=== PATIENT | male | born 1960 | race Caucasian/White ===

== ENCOUNTER 2016-07-29 07:43 | Emergency (ER) | payer BC ==
[2016-07-29] MEDS ORDERED: NS 0.9% 1000 ML* 1,000 ML IV ONE ×2 (08:17→10:28)
[2016-07-29 08:26] LABS: Hematocrit 45 % (42-52); Hemoglobin 14.8 g/dl (14.0-18.0); Mean Corpuscular HGB Conc 33 g/dl (31-36); Mean Corpuscular Hemoglobin 27 pg (27-31); Mean Corpuscular Volume 82 fL (80-94); Mean Platelet Volume 8 um3 (7.4-10.4); Red Blood Count 5.47 10^6/ul (4.0-5.4); Red Cell Distribution Width 15 % (10.5-15); White Blood Count 7.8 10^3/ul (3.5-10.8)
[2016-07-29 08:29] LABS: Urine Bilirubin Negative (Negative); Urine Glucose Negative (Negative); Urine Nitrite Negative (Negative)
[2016-07-29 08:38] LABS: C Reactive Protein 7.96 mg/L (< 5.00); Calcium 8.8 mg/dL (8.6-10.3); EGFR African American 69.4 (>60); EGFR Non-African American 53.9 (>60); Globulin 3.3 g/dL (2-4); Magnesium 2.3 mg/dL (1.9-2.7); Potassium 3.9 mmol/L (3.5-5.0); Total Bilirubin 0.6 mg/dL (0.2-1.0); Total Protein 7.3 g/dL (6.4-8.9)
[2016-07-29 08:41] LABS: Troponin I 0.01 ng/mL (<0.04)
[2016-07-29 09:04] LABS: TSH (Thyroid Stimulating Horm) 1.04 mcIU/mL (0.34-5.60)
--- NOTE | 2016-07-29 10:00 | RAD ---
Indication: Chest pain. Single frontal view of the chest performed at 0827 hours was reviewed. Prior study is not available for review.. No mediastinal shift is noted. Heart is of normal size and configuration. Lung hughes appear clear. IMPRESSION: NO ACTIVE CARDIOPULMONARY DISEASE IS NOTED.
[2016-07-29] MEDS ORDERED: Iodixanol* (CONTRAST) 320 MG/ML 100 ML SDV IV ONE (10:01)
--- NOTE | 2016-07-29 10:18 | RAD ---
INDICATION: Chest pain and shortness of breath. COMPARISON: Comparison is made with a prior chest x-ray study from July 29, 2016. TECHNIQUE: A CT angiogram of the chest was performed with intravenous following intravenous injection of 82 ml of Visipaque 320 nonionic contrast. Contiguous axial sections were obtained from the lung apices through the lung bases. Images were reconstructed in the coronal and sagittal planes. FINDINGS: Exam is limited due to motion artifact at the lung bases limiting evaluation of the basilar segmental arteries. No intraluminal filling defect or pulmonary embolism is seen. The heart is within normal limits in size. No pericardial effusion is present. The thoracic aorta is normal in caliber and demonstrates homogeneous contrast opacification. No significant enlarged mediastinal or hilar lymph nodes are seen. The lungs are clear. No pleural effusion is seen. Images of the upper abdomen demonstrate fatty infiltration of the liver. No significant focal osseous abnormality is seen. IMPRESSION: 1. LIMITED STUDY, NO EVIDENCE FOR PULMONARY EMBOLISM. 2. HEPATIC STEATOSIS.
[2016-07-29 12:21] VITALS: BP 125/74
--- NOTE | 2016-07-29 13:14 | ED ---
Bertrand Elliott Karl, scribed for Brennan Au MD on 07/29/16 at 0825 . HPI Chest Pain - HPI Summary HPI Summary: Pt is a 56 y/o male BIBA that presents to the ED c/o bilateral "lung" pain that began at around 06:00 and lasted for 30 min. Pt reported that he felt much better once the EMT's arrived and thinks he may just be suffering from anxiety. Pt stated that the anxiety could be brought on by stress from having to take care of his father who has dementia and Alzheimer's and his brother leaving for 2 months which would result in his father being left alone for a period of time. Pt also reported that he was feeling lightheadedness and fatigue with his bilateral lung pain but both have subsided as well since arriving at the ED. Pt also reported that he is having memory problems for the past 6 months. Pt denied nausea, diaphoresis, and SOB. Hx: HTN, HLD, anxiety. - History of Current Complaint Chief Complaint: EDChestPainROMI Time Seen by Provider: 07/29/16 08:00 Hx Obtained From: Patient Pain Intensity: 0 - CP/Abd pain Pain Scale Used: 0-10 Numeric - Allergy/Home Medications Allergies/Adverse Reactions: Allergies Allergy/AdvReac Type Severity Reaction Status Date / Time No Known Allergies Allergy Verified 09/23/15 08:56 PMH/Surg Hx/FS Hx/Imm Hx Cardiovascular History: Reports: Hx Hypertension - CONTROL WITH MEDS Sensory History: Reports: Hx Contacts or Glasses - READING GLASSES Denies: Hx Hearing Aid Opthamlomology History: Reports: Hx Contacts or Glasses - READING GLASSES Neurological History: Reports: Other Neuro Impairments/Disorders - PATIENT STATES HE TAKES MEDICATION TO HELP HIM DEAL WITH PEOPLE. - Surgical History Surgery Procedure, Year, and Place: 30 YEARS SURGERY TO REPAIR BROKEN BONE IN LEG, Hx Anesthesia Reactions: No Infectious Disease History: No Infectious Disease History: Denies: Traveled Outside the [place] in Last 30 Days - Family History Known Family History: Positive: Other - dementia - Social History Alcohol Use: Occasionally Alcohol Amount: 1 BEER Substance Use Type: Reports: None Smoking Status (MU): Never Smoked Tobacco Review of Systems Positive: Fatigue. Negative: Skin Diaphoresis Eyes: Negative ENT: Negative Cardiovascular: Negative Positive: Other - bilateral "lung pain". Negative: Shortness Of Breath Negative: Nausea Genitourinary: Negative Musculoskeletal: Negative Skin: Negative Neurological: Other - llightheadedness Positive: Anxious All Other Systems Reviewed And Are Negative: Yes Physical Exam Triage Information Reviewed: Yes Vital Signs On Initial Exam: Initial Vitals Temp Pulse Resp BP Pulse Ox 98.9 F 77 18 121/69 96 07/29/16 07:50 07/29/16 07:50 07/29/16 07:50 07/29/16 07:50 07/29/16 07:50 Vital Signs Reviewed: Yes Appearance: Positive: Well-Appearing, No Pain Distress Skin: Positive: Warm, Skin Color Reflects Adequate Perfusion, Dry Head/Face: Positive: Normal Head/Face Inspection Eyes: Positive: EOMI, LEANDRO ENT: Positive: Normal ENT inspection Neck: Positive: Supple, Nontender Respiratory/Lung Sounds: Positive: Clear to Auscultation, Breath Sounds Present Cardiovascular: Positive: RRR Abdomen Description: Positive: Nontender, Soft Bowel Sounds: Positive: Present Musculoskeletal: Positive: Normal, Strength/ROM Intact Neurological: Positive: Normal, Sensory/Motor Intact, Alert, Oriented to Person Place, Time Psychiatric: Positive: Affect/Mood Appropriate Diagnostics - Vital Signs Vital Signs Temp Pulse Resp BP Pulse Ox 07/29/16 07:50 98.9 F 77 18 121/69 96 - Laboratory Lab Results: Lab Results 07/29/16 07/29/16 07/29/16 Range/Units 08:00 08:00 08:00 WBC 7.8 (3.5-10.8) 10^3/ul RBC 5.47 H (4.0-5.4) 10^6/ul Hgb 14.8 (14.0-18.0) g/dl Hct 45 (42-52) % MCV 82 (80-94) fL MCH 27 (27-31) pg MCHC 33 (31-36) g/dl RDW 15 (10.5-15) % Plt Count 231 (150-450) 10^3/ul MPV 8 (7.4-10.4) um3 Neut % (Auto) 69.8 (38-83) % Lymph % (Auto) 20.4 L (25-47) % Reagan % (Auto) 8.1 (1-9) % Eos % (Auto) 1.1 (0-6) % Baso % (Auto) 0.6 (0-2) % Absolute Neuts (auto) 5.5 (1.5-7.7) 10^3/ul Absolute Lymphs (auto) 1.6 (1.0-4.8) 10^3/ul Absolute Monos (auto) 0.6 (0-0.8) 10^3/ul Absolute Eos (auto) 0.1 (0-0.6) 10^3/ul Absolute Basos (auto) 0 (0-0.2) 10^3/ul Absolute Nucleated RBC 0.01 10^3/ul Nucleated RBC % 0.1 INR (Anticoag Therapy) 0.89 (0.89-1.11) APTT 25.6 L (26.0-36.3) seconds D-Dimer, Quantitative 325 H (Less Than 230) ng/mL Sodium 135 (133-145) mmol/L Potassium 3.9 (3.5-5.0) mmol/L Chloride 101 (101-111) mmol/L Carbon Dioxide 26 (22-32) mmol/L Anion Gap 8 (2-11) mmol/L BUN 26 H (6-24) mg/dL Creatinine 1.37 H (0.67-1.17) mg/dL Est GFR ( Amer) 69.4 (>60) Est GFR (Non-Af Amer) 53.9 (>60) BUN/Creatinine Ratio 19.0 (8-20) Glucose 106 H (70-100) mg/dL Lactic Acid (0.5-2.0) mmol/L Calcium 8.8 (8.6-10.3) mg/dL Magnesium 2.3 (1.9-2.7) mg/dL Total Bilirubin 0.60 (0.2-1.0) mg/dL AST 23 (13-39) U/L ALT 30 (7-52) U/L Alkaline Phosphatase 60 (34-104) U/L Total Creatine Kinase 111 (10-223) U/L CK-MB (CK-2) 5.4 (0.6-6.3) ng/mL Troponin I 0.01 (<0.04) ng/mL C-Reactive Protein 7.96 H (< 5.00) mg/L B-Natriuretic Peptide ( - 100) pg/mL Total Protein 7.3 (6.4-8.9) g/dL Albumin 4.0 (3.2-5.2) g/dL Globulin 3.3 (2-4) g/dL Albumin/Globulin Ratio 1.2 (1-3) Lipase 32 (11.0-82.0) U/L TSH 1.04 (0.34-5.60) mcIU/mL Urine Color Urine Appearance Urine pH (5-9) Ur Specific Lillian (1.010-1.030) Urine Protein (Negative) Urine Ketones (Negative) Urine Blood (Negative) Urine Nitrate (Negative) Urine Bilirubin (Negative) Urine Urobilinogen (Negative) Ur Leukocyte Esterase (Negative) Urine Glucose (Negative) 07/29/16 07/29/16 07/29/16 Range/Units 08:00 08:00 08:00 WBC (3.5-10.8) 10^3/ul RBC (4.0-5.4) 10^6/ul Hgb (14.0-18.0) g/dl Hct (42-52) % MCV (80-94) fL MCH (27-31) pg MCHC (31-36) g/dl RDW (10.5-15) % Plt Count (150-450) 10^3/ul MPV (7.4-10.4) um3 Neut % (Auto) (38-83) % Lymph % (Auto) (25-47) % Reagan % (Auto) (1-9) % Eos % (Auto) (0-6) % Baso % (Auto) (0-2) % Absolute Neuts (auto) (1.5-7.7) 10^3/ul Absolute Lymphs (auto) (1.0-4.8) 10^3/ul Absolute Monos (auto) (0-0.8) 10^3/ul Absolute Eos (auto) (0-0.6) 10^3/ul Absolute Basos (auto) (0-0.2) 10^3/ul Absolute Nucleated RBC 10^3/ul Nucleated RBC % INR (Anticoag Therapy) (0.89-1.11) APTT (26.0-36.3) seconds D-Dimer, Quantitative (Less Than 230) ng/mL Sodium (133-145) mmol/L Potassium (3.5-5.0) mmol/L Chloride (101-111) mmol/L Carbon Dioxide (22-32) mmol/L Anion Gap (2-11) mmol/L BUN (6-24) mg/dL Creatinine (0.67-1.17) mg/dL Est GFR ( Amer) (>60) Est GFR (Non-Af Amer) (>60) BUN/Creatinine Ratio (8-20) Glucose (70-100) mg/dL Lactic Acid 1.0 (0.5-2.0) mmol/L Calcium (8.6-10.3) mg/dL Magnesium (1.9-2.7) mg/dL Total Bilirubin (0.2-1.0) mg/dL AST (13-39) U/L ALT (7-52) U/L Alkaline Phosphatase (34-104) U/L Total Creatine Kinase (10-223) U/L CK-MB (CK-2) (0.6-6.3) ng/mL Troponin I (<0.04) ng/mL C-Reactive Protein (< 5.00) mg/L B-Natriuretic Peptide 8 ( - 100) pg/mL Total Protein (6.4-8.9) g/dL Albumin (3.2-5.2) g/dL Globulin (2-4) g/dL Albumin/Globulin Ratio (1-3) Lipase (11.0-82.0) U/L TSH (0.34-5.60) mcIU/mL Urine Color Yellow Urine Appearance Clear Urine pH 6.0 (5-9) Ur Specific Lillian 1.016 (1.010-1.030) Urine Protein Negative (Negative) Urine Ketones Negative (Negative) Urine Blood Negative (Negative) Urine Nitrate Negative (Negative) Urine Bilirubin Negative (Negative) Urine Urobilinogen Negative (Negative) Ur Leukocyte Esterase Negative (Negative) Urine Glucose Negative (Negative) 07/29/16 Range/Units 12:25 WBC (3.5-10.8) 10^3/ul RBC (4.0-5.4) 10^6/ul Hgb (14.0-18.0) g/dl Hct (42-52) % MCV (80-94) fL MCH (27-31) pg MCHC (31-36) g/dl RDW (10.5-15) % Plt Count (150-450) 10^3/ul MPV (7.4-10.4) um3 Neut % (Auto) (38-83) % Lymph % (Auto) (25-47) % Reagan % (Auto) (1-9) % Eos % (Auto) (0-6) % Baso % (Auto) (0-2) % Absolute Neuts (auto) (1.5-7.7) 10^3/ul Absolute Lymphs (auto) (1.0-4.8) 10^3/ul Absolute Monos (auto) (0-0.8) 10^3/ul Absolute Eos (auto) (0-0.6) 10^3/ul Absolute Basos (auto) (0-0.2) 10^3/ul Absolute Nucleated RBC 10^3/ul Nucleated RBC % INR (Anticoag Therapy) (0.89-1.11) APTT (26.0-36.3) seconds D-Dimer, Quantitative (Less Than 230) ng/mL Sodium (133-145) mmol/L Potassium (3.5-5.0) mmol/L Chloride (101-111) mmol/L Carbon Dioxide (22-32) mmol/L Anion Gap (2-11) mmol/L BUN (6-24) mg/dL Creatinine (0.67-1.17) mg/dL Est GFR ( Amer) (>60) Est GFR (Non-Af Amer) (>60) BUN/Creatinine Ratio (8-20) Glucose (70-100) mg/dL Lactic Acid (0.5-2.0) mmol/L Calcium (8.6-10.3) mg/dL Magnesium (1.9-2.7) mg/dL Total Bilirubin (0.2-1.0) mg/dL AST (13-39) U/L ALT (7-52) U/L Alkaline Phosphatase (34-104) U/L Total Creatine Kinase (10-223) U/L CK-MB (CK-2) (0.6-6.3) ng/mL Troponin I 0.01 (<0.04) ng/mL C-Reactive Protein (< 5.00) mg/L B-Natriuretic Peptide ( - 100) pg/mL Total Protein (6.4-8.9) g/dL Albumin (3.2-5.2) g/dL Globulin (2-4) g/dL Albumin/Globulin Ratio (1-3) Lipase (11.0-82.0) U/L TSH (0.34-5.60) mcIU/mL Urine Color Urine Appearance Urine pH (5-9) Ur Specific Lillian (1.010-1.030) Urine Protein (Negative) Urine Ketones (Negative) Urine Blood (Negative) Urine Nitrate (Negative) Urine Bilirubin (Negative) Urine Urobilinogen (Negative) Ur Leukocyte Esterase (Negative) Urine Glucose (Negative) Result Diagrams: 07/29/16 08:00 07/29/16 08:00 Lab Statement: Any lab studies that have been ordered have been reviewed, and results considered in the medical decision making process. - Radiology CXR Xray Interpretation: No Acute Changes Radiology Interpretation Completed By: Radiologist - IMPRESSION: NO ACTIVE CARDIOPULMONARY DISEASE IS NOTED. CTA Chest Xray Interpretation: No Acute Changes Radiology Interpretation Completed By: Radiologist - IMPRESSION: 1. LIMITED STUDY, NO EVIDENCE FOR PULMONARY EMBOLISM. 2. HEPATIC STEATOSIS. - EKG 07:45 Cardiac Rate: NL - at 77 bpm EKG Rhythm: Sinus Rhythm Ectopy: None EKG Interpretation: LVH Re-Evaluation - Re-Evaluation First Eval Re-Evaluation Time: 10:25 Change: Unchanged Comment: Discussed results of the imaging studies and laboratory results with the pt. Chest Pain Course/Dx - Course Assessment/Plan: WELL IN ED. DISCHARGE HOME STABLE. - Diagnoses Provider Diagnoses: Chest pain, Dyspnea Discharge - Discharge Plan Condition: Stable Disposition: HOME Patient Education Materials: Chest Pain (ED), Dyspnea (ED) Referrals: Jaron Menjivar MD [Primary Care Provider] - Additional Instructions: FOLLOW UP WITH DR MENJIVAR. RETURN TO THE EMERGENCY DEPARTMENT FOR ANY WORSENING OF YOUR CONDITION OR QUESTIONS OR CONCERNS. The documentation as recorded by the Bertrand myers Karl accurately reflects the service I personally performed and the decisions made by me, Brennan Au MD.
== END 2016-07-29 13:44 | disposition home or self-care (01) ==
LOC: ED 07:43
DX: R07.9 Chest pain, unspecified (principal); R06.00 Dyspnea, unspecified
CPT/HCPCS: 36415; 71010; 71275; 80053; 81003; 82550; 82553; 83605; 83690; 83735; 83880; 84443; 84484; 85025; 85379; 85610; 85730; 86140; 93005; 96360; 99282; Q9967

== ENCOUNTER 2018-01-17 09:11 | Emergency (ER) | payer BC ==
--- NOTE | 2018-01-17 10:03 | ED ---
Medical Screening - HPI Summary HPI Summary: 58M presents with two days of insomnia. He states that he is out of seroquel. He states that he was being tampered down as was suppose to start new medication. says has not called mental health office to get refill. He denies any chest pain, SOB, or abdominal pain. no dizziness. admits to fatigue attributed to lack of sleep. states is here for medication refill only. admits to increase stress. mother is in fdc is causing stress. no SI/HI. follows up with [facility]. has been taking HTN med as prescribed. - History of Current Complaint Chief Complaint: EDHypertension Stated Complaint: INSOMNIA Time Seen by Provider: 01/17/18 09:38 PMH/Surg Hx/FS Hx/Imm Hx Endocrine/Hematology History: Denies: Hx Diabetes Cardiovascular History: Reports: Hx Hypertension - CONTROL WITH MEDS History: Denies: Hx Renal Disease Sensory History: Reports: Hx Contacts or Glasses - READING GLASSES Denies: Hx Hearing Aid Opthamlomology History: Reports: Hx Contacts or Glasses - READING GLASSES Neurological History: Reports: Other Neuro Impairments/Disorders - PATIENT STATES HE TAKES MEDICATION TO HELP HIM DEAL WITH PEOPLE. - Surgical History Surgery Procedure, Year, and Place: 30 YEARS SURGERY TO REPAIR BROKEN BONE IN LEG, Hx Anesthesia Reactions: No Infectious Disease History: No Infectious Disease History: Denies: Traveled Outside the [place] in Last 30 Days - Family History Known Family History: Positive: Other - dementia - Social History Alcohol Use: Occasionally Alcohol Amount: 1 BEER Substance Use Type: Reports: None Smoking Status (MU): Never Smoked Tobacco Review of Systems Negative: Fever Negative: Chest Pain Negative: Shortness Of Breath Neurological: Other - insomnia All Other Systems Reviewed And Are Negative: Yes Physical Exam Triage Information Reviewed: Yes Vital Signs On Initial Exam: Initial Vitals Temp Pulse Resp BP Pulse Ox 97.2 F 51 18 190/101 98 01/17/18 09:18 01/17/18 09:18 01/17/18 09:18 01/17/18 09:18 01/17/18 09:18 Vital Signs Reviewed: Yes Appearance: Positive: Well-Appearing Skin: Positive: Warm, Dry Head/Face: Positive: Normal Head/Face Inspection Eyes: Positive: Normal, Conjunctiva Clear ENT: Positive: Pharynx normal Respiratory/Lung Sounds: Positive: Clear to Auscultation, Breath Sounds Present Cardiovascular: Positive: Normal, RRR Abdomen Description: Positive: Nontender, Soft Bowel Sounds: Positive: Present Musculoskeletal: Positive: Normal Neurological: Positive: Normal Psychiatric: Positive: Normal Diagnostics - Vital Signs Vital Signs Temp Pulse Resp BP Pulse Ox 01/17/18 09:26 14 175/81 01/17/18 09:25 27 01/17/18 09:18 97.2 F 51 18 190/101 98 - Laboratory Lab Statement: Any lab studies that have been ordered have been reviewed, and results considered in the medical decision making process. Course/Dx - Course Course Of Treatment: 58M presents with two days of insomnia. He states that he is out of seroquel. He states that he was being tampered down as was suppose to start new medication. says has not called mental health office to get refill. He denies any chest pain, SOB, or abdominal pain. no dizziness. admits to fatigue attributed to lack of sleep. states is here for medication refill only. admits to increase stress. mother is in fdc is causing stress. no SI/HI. follows up with [facility]. has been taking HTN med as prescribed. on exam normal PE. spoke with counselor from [facility] and read dr notes and said that last meeting on decided to stop seroquel by tapering. has have started Ramelteon intead and also trazadone. discussed with patient due to tapering off and now off medication do not want to restart medication as will leave up to mental health clinic. discussed should give medication some time to work and [facility] patient blood pressure is elevated at this visit. denies any symptoms of chest pain, SOB, or headache. patient declined lab work and has history of HTN so will give dose of hydrazaline and have follow up with primary. patient understand and agrees with plan. - Diagnoses Provider Diagnoses: Medication refill, Hypertension Discharge - Sign-Out/Discharge Documenting (check all that apply): Discharge/Admit/Transfer - Discharge Plan Condition: Good Disposition: HOME Patient Education Materials: Hypertension (ED) Referrals: Jaron Menjivar MD [Primary Care Provider] - Additional Instructions: Follow up with mental health Follow up with primary about blood pressure as is elevated at this visit Return to ED if develop any new or worsening symptoms - Billing Disposition and Condition Condition: GOOD Disposition: Home
[2018-01-17] MEDS ORDERED: hydrALAZINE TAB* 10 MG PO ONE (10:11)
[2018-01-17 10:28] VITALS: BP 149/76
== END 2018-01-17 10:19 | disposition home or self-care (01) ==
LOC: ED 09:11
DX: I10 Essential (primary) hypertension (principal)
CPT/HCPCS: 99283; A9270-GY

== ENCOUNTER → 2018-05-16 09:52 | Emergency (ER) | payer BC ==
[~2018-05-16 09:52] MED LIST: Lisinopril TAB* 10 MG PO ONE; hydrALAZINE IV* 20 MG/ML VIAL IV SLOW PU ONE
[2018-05-16 10:25] LABS: ABS Basophils 0 10^3/ul (0-0.2); ABS Eosinophils 0.1 10^3/ul (0-0.6); ABS Lymphocytes 0.8 10^3/ul (1.0-4.8); ABS Monocytes 0.3 10^3/ul (0-0.8); ABS Neutrophils 3.5 10^3/ul (1.5-7.7); ABS Nucleated RBC 0 10^3/ul; Eosinophil % 1.7 % (0-6); Hematocrit 40 % (42-52); Hemoglobin 13.5 g/dl (14.0-18.0); Lymphocyte % 17.1 % (25-47); Mean Corpuscular HGB Conc 34 g/dl (31-36); Mean Corpuscular Hemoglobin 29 pg (27-31); Mean Corpuscular Volume 86 fL (80-94); Mean Platelet Volume 8.3 um3 (7.4-10.4); Nucleated Red Blood Cells % 0.1; Platelet Count 236 10^3/ul (150-450); Red Cell Distribution Width 14 % (10.5-15); White Blood Count 4.7 10^3/ul (3.5-10.8)
--- NOTE | 2018-05-16 10:36 | ED ---
Shortness of Breath - HPI Summary HPI Summary: Patient is a 58 y/o M w/ c/o SOB, spells of dizziness, and pressure behind his eyes. He states that he woke up at 0330 today for his work shift at 0500 and began to experience these Sx. He denies chest pain/tightness. Patient states that he took his normal sleeping medication at 1830 last night as opposed to 1700, his regular time. He also notes that he has an appointment with his psychiatrist in three days to discuss stopping his sleep medication. Patient is also on Lisinopril. In the room, o2 is 97, BP is 152/102, pulse is 60. He notes that he was in ED for high BP previously and states that he was given "one pill " which helped resolve BP problems. He does not remember the name of the pill. He denies drug/alc usage, denies SI presently or recently. However, he has had PMHx of SI. He notes recent stress with his father being in a [place] [facility] facility. On triage, pain is denied, sitting down and resting is noted to alleviate Sx, nothing is reported to aggravate Sx. Home medications and allergies are reviewed. - History of Current Complaint Chief Complaint: EDDizziness Time Seen by Provider: 05/16/18 09:58 Hx Obtained From: Patient Onset/Duration: Lasting Hours, Still Present Timing: Intermittent Episodes Lasting: Current Severity: None Aggrevating Factors: Nothing Alleviating Factors: Other - sitting down, resting Associated Signs & Symptoms: Dizzy - Allergy/Home Medications Allergies/Adverse Reactions: Allergies Allergy/AdvReac Type Severity Reaction Status Date / Time No Known Allergies Allergy Verified 09/23/15 08:56 PMH/Surg Hx/FS Hx/Imm Hx Endocrine/Hematology History: Denies: Hx Diabetes Cardiovascular History: Reports: Hx Hypertension - CONTROL WITH MEDS History: Denies: Hx Renal Disease Sensory History: Reports: Hx Contacts or Glasses - READING GLASSES Denies: Hx Hearing Aid Opthamlomology History: Reports: Hx Contacts or Glasses - READING GLASSES Neurological History: Reports: Other Neuro Impairments/Disorders - PATIENT STATES HE TAKES MEDICATION TO HELP HIM DEAL WITH PEOPLE. - Surgical History Surgery Procedure, Year, and Place: 30 YEARS SURGERY TO REPAIR BROKEN BONE IN LEG, Hx Anesthesia Reactions: No Infectious Disease History: No Infectious Disease History: Denies: Traveled Outside the [place] in Last 30 Days - Family History Known Family History: Positive: Other - dementia - Social History Alcohol Use: Occasionally Alcohol Amount: 1 BEER Substance Use Type: Reports: None Smoking Status (MU): Never Smoked Tobacco Review of Systems Negative: Fever, Chills Positive: Other - POSITIVE: pressure behind eyes . Negative: Erythema Negative: Sore Throat Negative: Chest Pain Positive: Shortness Of Breath Negative: Abdominal Pain, Vomiting, Nausea Negative: dysuria, hematuria Negative: Myalgia, Edema Negative: Rash Neurological: Other - POSITIVE: dizziness All Other Systems Reviewed And Are Negative: Yes Physical Exam - Summary Physical Exam Summary: Constitutional: Well-developed, Well-nourished, Alert. (-) Distressed (+) Pressured Speech Skin: Warm, Dry HENT: Normocephalic; Atraumatic Eyes: Conjunctiva normal Neck: Musculoskeletal ROM normal neck. (-) JVD, (-) Stridor, (-) Tracheal deviation Cardio: Rhythm regular, rate normal, Heart sounds normal; Intact distal pulses; The pedal pulses are 2+ and symmetric. Radial pulses are 2+ and symmetric. (-) Murmur Pulmonary/Chest wall: Effort normal. (-) Respiratory distress, (-) Wheezes, (-) Rales Abd: Soft, (-) epigastric tenderness, (-) Distension, (-) Guarding, (-) Rebound Musculoskeletal: (-) Edema Lymph: (-) Cervical adenopathy Neuro: Alert, Oriented x3; GCS 15 Psych: Mood and affect Normal Triage Information Reviewed: Yes Vital Signs On Initial Exam: Initial Vitals Temp Pulse Resp BP Pulse Ox 98.8 F 57 18 171/102 96 05/16/18 09:57 05/16/18 09:57 05/16/18 09:57 05/16/18 09:57 05/16/18 09:57 Vital Signs Reviewed: Yes Diagnostics - Vital Signs Vital Signs Temp Pulse Resp BP Pulse Ox 05/16/18 09:57 98.8 F 57 18 171/102 96 - Laboratory Lab Results: Lab Results 05/16/18 Range/Units 10:15 WBC 4.7 (3.5-10.8) 10^3/ul RBC 4.60 (4.00-5.40) 10^6/ul Hgb 13.5 L (14.0-18.0) g/dl Hct 40 L (42-52) % MCV 86 (80-94) fL MCH 29 (27-31) pg MCHC 34 (31-36) g/dl RDW 14 (10.5-15) % Plt Count 236 (150-450) 10^3/ul MPV 8.3 (7.4-10.4) um3 Neut % (Auto) 73.9 (38-83) % Lymph % (Auto) 17.1 L (25-47) % [place] % (Auto) 6.6 (0-7) % Eos % (Auto) 1.7 (0-6) % Baso % (Auto) 0.7 (0-2) % Absolute Neuts (auto) 3.5 (1.5-7.7) 10^3/ul Absolute Lymphs (auto) 0.8 L (1.0-4.8) 10^3/ul Absolute Monos (auto) 0.3 (0-0.8) 10^3/ul Absolute Eos (auto) 0.1 (0-0.6) 10^3/ul Absolute Basos (auto) 0 (0-0.2) 10^3/ul Absolute Nucleated RBC 0 10^3/ul Nucleated RBC % 0.1 Result Diagrams: 05/16/18 10:15 05/16/18 10:15 Lab Statement: Any lab studies that have been ordered have been reviewed, and results considered in the medical decision making process. - Radiology CXR Radiology Interpretation Completed By: Radiologist Summary of Radiographic Findings: No radiographic evidence of acute cardiopulmonary disease. This report was reviewed by ED physician. - CT Brain CT CT Interpretation Completed By: Radiologist Summary of CT Findings: No acute intracranial pathology. This report was reviewed by ed physician. - EKG 1025 Cardiac Rate: Bradycardia - rate of 54 bpm EKG Rhythm: Sinus Bradycardia EKG Interpretation: no STEMI Re-Evaluation - Re-Evaluation First Eval Re-Evaluation Time: 11:38 Change: Improved Comment: 1138 Patient feels better, 130 systolic BP Second Eval Re-Evaluation Time: 13:30 Comment: First trop is 0.01, second is 0.01. Results of labs and tests were discussed with patient. Patient will be discharged to home and is instructed to take him Lisinopril in the morning starting tomorrow and to follow up with PCP in 1-2 days. Patient agrees with this plan. Course/Dx - Course Course Of Treatment: Patient is a 58 y/o M w/ c/o SOB, spells of dizziness, and pressure behind his eyes. He states that he woke up at 0330 today for his work shift at 0500 and began to experience these Sx. He denies chest pain/tightness. Patient states that he took his normal sleeping medication at 1830 last night as opposed to 1700, his regular time. Patient is also on Lisinopril. In the room , o2 is 97, BP is 152/102, pulse is 60. He denies drug/alc usage, denies SI presently or recently. However, he has had PMHx of SI. On physical exam, patient is noted to have pressured speech. During ED course, patient received Prinivil 30 mg PO ONCE and apresoline 5 mg IV SLOW PUSH. UA was negative. EKG showed sinus bradycardia with rate of [address] showed no acute intracranial pathology. CXR showed no radiographic evidence of acute cardiopulmonary disease. Labs showed 0.93 TSH, glucose 109, lactic acid 0.9, Hgb 13.5, WBC 4.7. First trop is 0.01, second is 0.01. 1330 Results of labs and tests were discussed with patient. Patient will be discharged to home and is instructed to take him Lisinopril in the morning starting tomorrow and to follow up with PCP in 1-2 days. Patient agrees with this plan. Dx of uncontrolled HTN. - Diagnoses Provider Diagnoses: Uncontrolled hypertension Discharge - Sign-Out/Discharge Documenting (check all that apply): Patient Departure - discharge - Discharge Plan Condition: Stable Disposition: HOME Prescriptions: Lisinopril TAB* [Prinivil TAB 10 MG*] 30 mg PO DAILY #42 tab Patient Education Materials: Hypertension (ED) Forms: *Work Release Referrals: Jaron Menjivar MD [Primary Care Provider] - 2 Days Additional Instructions: Take Lisinopril in the morning starting tomorrow. Follow up with your primary care physician in 1-2 days. Return to ED for any changing or worsening symptoms. - Attestation Statements Document Initiated by Scribe: Yes Documenting Scribe: Prosper Stacy Provider For Whom Jonnae is Documenting (Include Credential): Jeremiah Fountain MD Scribe Attestation: Prosper Elliott , scribed for Jeremiah Fountain MD on 05/16/18 at 1505.
[2018-05-16 10:45] LABS: Urine Appearance Clear; Urine Blood Negative (Negative); Urine Color Straw; Urine Ketones Negative (Negative); Urine Protein Negative (Negative); Urine Specific Gravity 1.011 (1.010-1.030); Urine Urobilinogen Negative (Negative)
[2018-05-16 10:49] LABS: EGFR Non-African American 91.7 (>60)
--- NOTE | 2018-05-16 10:55 | RAD ---
HISTORY: DIZZINESS, WEAKNESS COMPARISONS: February 27, 2007 TECHNIQUE: Multiple contiguous axial CT scans were obtained of the head without intravenous contrast. FINDINGS: HEMORRHAGE/INFARCT: There is no hemorrhage or acute infarct. MASSES/SHIFT: There is no mass or shift. EXTRA-AXIAL SPACES: There are no extra-axial fluid collections. SULCI AND VENTRICLES: The sulci and ventricles are normal in size and position for the patient's stated age. CEREBRUM: There are no focal parenchymal abnormalities. BRAINSTEM: There are no focal parenchymal abnormalities. CEREBELLUM: There are no focal parenchymal abnormalities. VESSELS: There is calcification of the cavernous segments of the internal carotid arteries bilaterally and of the distal vertebral arteries bilaterally. PARANASAL SINUSES: The paranasal sinuses are clear. ORBITS: The orbits are unremarkable. BONES AND SOFT TISSUE: No bone or soft tissue abnormalities are noted. OTHER: None IMPRESSION: NO ACUTE INTRACRANIAL PATHOLOGY.
--- NOTE | 2018-05-16 10:58 | RAD ---
INDICATION: Weakness COMPARISON: None TECHNIQUE: PA and lateral views of the chest were obtained. FINDINGS: The heart and mediastinum are normal in size and contour. The lungs are grossly clear. There is no evidence of large pleural effusion. Degenerative changes of the thoracic spine includes loss of intervertebral disc height and marginal osteophyte formation. There is no radiographic evidence of free air beneath the diaphragm IMPRESSION: No radiographic evidence of acute cardiopulmonary disease.
[2018-05-16 13:59] VITALS: BP 174/95
== END | disposition home or self-care (01) ==
LOC: ED 09:52
DX: I10 Essential (primary) hypertension (principal); R42 Dizziness and giddiness; R00.1 Bradycardia, unspecified
CPT/HCPCS: 36415; 70450; 71046; 80053; 81003; 83605; 83735; 84443; 84484; 85025; 93005; 96374; 99283; A9270-GY; J0360

== ENCOUNTER 2018-07-05 09:24 | Emergency (ER) | payer BC ==
[2018-07-05] MEDS ORDERED: traMADol TAB* 50 MG PO ONE (09:55)
[2018-07-05 11:04] VITALS: BP 165/98
--- NOTE | 2018-07-05 11:14 | ED ---
Lower Extremity - HPI Summary HPI Summary: Patient is an otherwise healthy 58-year-old male presenting to the ED with left- sided lateral hip pain after a fall this morning. He states he was able to ambulate immediately following, but is endorsing continuous pain. Pain is currently rated a 3/10, constant throbbing. He has never injured the hip before and denies any prosthesis. Denies any other symptoms including other injuries, head injury or LOC. Denies numbness or tingling. - History of Current Complaint Chief Complaint: EDHipPelvisInjury Stated Complaint: FALL Time Seen by Provider: 07/05/18 09:35 Hx Obtained From: Patient Onset of Pain: Hours Onset/Duration: Hours Severity Initially: Mild Severity Currently: Mild Pain Intensity: 2 Pain Scale Used: 0-10 Numeric Location: Is Discrete @ - left lateral hip pain on palpation Associated Signs And Symptoms: Positive: Bruising. Negative: Swelling, Redness Aggravating Factor(s): Standing, Ambulation Alleviating Factor(s): Rest Able to Bear Weight: Yes - Allergies/Home Medications Allergies/Adverse Reactions: Allergies Allergy/AdvReac Type Severity Reaction Status Date / Time No Known Allergies Allergy Verified 09/23/15 08:56 PMH/Surg Hx/FS Hx/Imm Hx Previously Healthy: Yes Endocrine/Hematology History: Denies: Hx Diabetes Cardiovascular History: Reports: Hx Hypertension - CONTROL WITH MEDS History: Denies: Hx Renal Disease Sensory History: Reports: Hx Contacts or Glasses - READING GLASSES Denies: Hx Hearing Aid Opthamlomology History: Reports: Hx Contacts or Glasses - READING GLASSES Neurological History: Reports: Other Neuro Impairments/Disorders - PATIENT STATES HE TAKES MEDICATION TO HELP HIM DEAL WITH PEOPLE. - Surgical History Surgery Procedure, Year, and Place: 30 YEARS SURGERY TO REPAIR BROKEN BONE IN LEG, Hx Anesthesia Reactions: No - Immunization History Hx Pertussis Vaccination: No Immunizations Up to Date: Yes Infectious Disease History: No Infectious Disease History: Denies: Traveled Outside the [place] in Last 30 Days - Family History Known Family History: Positive: Other - dementia - Social History Occupation: Employed Full-time Lives: Alone Alcohol Use: Occasionally Alcohol Amount: 1 BEER Hx Substance Use: No Substance Use Type: Reports: None Hx Tobacco Use: No Smoking Status (MU): Never Smoked Tobacco Review of Systems Constitutional: Negative Negative: Fever, Chills, Fatigue, Skin Diaphoresis Negative: Palpitations, Chest Pain Negative: Shortness Of Breath, Cough Positive: Arthralgia - left lateral hip pain on palpation Positive: Bruising - anterior and posterior thigh Neurological: Negative All Other Systems Reviewed And Are Negative: Yes Physical Exam Triage Information Reviewed: Yes Vital Signs On Initial Exam: Initial Vitals Temp Pulse Resp BP Pulse Ox 98.6 F 64 16 169/92 95 07/05/18 09:29 07/05/18 09:29 07/05/18 09:29 07/05/18 09:29 07/05/18 09:29 Vital Signs Reviewed: Yes Appearance: Positive: Well-Appearing, Well-Nourished Skin: Positive: Skin Color Reflects Adequate Perfusion Head/Face: Positive: Normal Head/Face Inspection Neck: Positive: Supple, No Lymphadenopathy Respiratory/Lung Sounds: Positive: Clear to Auscultation, Breath Sounds Present Cardiovascular: Positive: RRR, Pulses are Symmetrical in both Upper and Lower Extremities Musculoskeletal: Positive: Strength/ROM Intact - right lateral hip pain Neurological: Positive: Speech Normal Psychiatric: Positive: Affect/Mood Appropriate Diagnostics - Vital Signs Vital Signs Temp Pulse Resp BP Pulse Ox 07/05/18 11:02 99.4 F 68 18 165/98 100 07/05/18 11:00 165/96 07/05/18 10:29 67 164/108 96 07/05/18 10:09 58 95 07/05/18 10:00 158/86 07/05/18 09:29 98.6 F 67 16 169/92 96 - Laboratory Lab Statement: Any lab studies that have been ordered have been reviewed, and results considered in the medical decision making process. Lower Extremity Course/Dx - Course Course Of Treatment: Patient is evaluated for left-sided hip pain. On physical examination, there is a significant amount of ecchymosis and yellow tinged color which appears to be old ecchymosis to the anterior, posterior thigh. X- ray obtained of the left hip and pelvis which shows osteoarthritis without acute fracture. Log rolled patient without pain. Patient is able to ambulate well. Pain only with direct palpation of the lateral aspect of the leg. He states he may have injured the leg several weeks ago while running which could be a cause for the old appearing ecchymosis to the leg. He is encouraged ibuprofen and heat to the area. As patient is able to ambulate well, I do not believe a CT is necessary at this time. - Diagnoses Differential Diagnosis/HQI/PQRI: Positive: Contusion Provider Diagnoses: Contusion, hip Discharge - Sign-Out/Discharge Documenting (check all that apply): Patient Departure - Discharge Plan Condition: Stable Disposition: HOME Patient Education Materials: Osteoarthritis (ED), Hip Contusion (ED) Forms: *Work Release Referrals: Jaron Menjivar MD [Primary Care Provider] - Additional Instructions: Ibuprofen 600 mg 3 times daily Heat to the area [place] Try to rest as much as possible, however continued to use the leg daily to prevent stiffness If you develop worsening symptoms or are unable to walk, return to the ED - Billing Disposition and Condition Condition: STABLE Disposition: Home
== END 2018-07-05 11:02 | disposition home or self-care (01) ==
LOC: ED 09:24
DX: S70.02XA Contusion of left hip, initial encounter (principal); W19.XXXA Unspecified fall, initial encounter; Y92.9 Unspecified place or not applicable; M16.0 Bilateral primary osteoarthritis of hip; I10 Essential (primary) hypertension
CPT/HCPCS: 99282; A9270-GY

== ENCOUNTER 2018-08-03 10:40 | Emergency (ER) | payer BC ==
--- NOTE | 2018-08-03 11:09 | ED ---
Altered Mental Status - HPI Summary HPI Summary: Patient is a 58 y/o M presenting to ED with complaints of short term memory loss and confusion over the past year, SI. SI onset this past week, noting that his father has "not been doing well". Patient states that he is unsure if he needs hospitalization, notes that he will know after his appointment with his regular counselor today at 1430. He states that he came into ED today as he wants a work note for the next two weeks. No SOB, no nausea, no BLE edema, no difficulty walking, no numbness, no weakness. Hx of HTN, depression. He states he is not on any medications for depression. On triage, pain is denied, nothing is noted to aggravate/alleviate Sx. Home medications, allergies, and nurse's note reviewed. - History Of Current Complaint Chief Complaint: EDNeurologicalDeficit Stated Complaint: MHE/SI/MEMORY LOSS Time Seen by Provider: 08/03/18 10:52 Hx Obtained From: Patient Timing: Constant, Lasting Weeks - confusion and short term memory loss past year , SI last week Severity Currently: None - pain denied Character: Confusion Aggravating Factor(s): Nothing Alleviating Factor(s): Nothing Associated Signs And Symptoms: Positive: Negative Has Suicidal: Thoughts - Allergies/Home Medications Allergies/Adverse Reactions: Allergies Allergy/AdvReac Type Severity Reaction Status Date / Time No Known Allergies Allergy Verified 09/23/15 08:56 PMH/Surg Hx/FS Hx/Imm Hx Endocrine/Hematology History: Denies: Hx Diabetes Cardiovascular History: Reports: Hx Hypertension - CONTROL WITH MEDS History: Denies: Hx Renal Disease Sensory History: Reports: Hx Contacts or Glasses - READING GLASSES Denies: Hx Hearing Aid Opthamlomology History: Reports: Hx Contacts or Glasses - READING GLASSES Neurological History: Reports: Other Neuro Impairments/Disorders - PATIENT STATES HE TAKES MEDICATION TO HELP HIM DEAL WITH PEOPLE. - Surgical History Surgery Procedure, Year, and Place: 30 YEARS SURGERY TO REPAIR BROKEN BONE IN LEG, Hx Anesthesia Reactions: No Infectious Disease History: No Infectious Disease History: Denies: Traveled Outside the [place] in Last 30 Days - Family History Known Family History: Positive: Other - dementia - Social History Alcohol Use: Occasionally Alcohol Amount: 1 BEER Hx Substance Use: No Substance Use Type: Reports: None Hx Tobacco Use: No Smoking Status (MU): Never Smoked Tobacco Review of Systems Negative: Shortness Of Breath Negative: Nausea Positive: Other - NEGATIVE - DIFFICULTY WALKING. Negative: Edema - BLE Neurological: Other - POSITIVE - CONFUSION, SHORT TERM MEMORY LOSS Negative: Weakness, Numbness Positive: Other - POSITIVE - SI All Other Systems Reviewed And Are Negative: Yes Physical Exam - Summary Physical Exam Summary: Appearance: Well appearing, no pain distress Skin: warm, dry, reflects adequate perfusion Head/face: normal Eyes: EOMI, LEANDRO ENT: mucous membranes moist Neck: supple, non-tenderf Respiratory: CTA, breath sounds present Cardiovascular: RRR, pulses symmetrical Abdomen: non-tender, soft Bowel Sounds: present Musculoskeletal: normal, strength/ROM intact Neuro: normal, sensory motor intact, A&Ox3 Triage Information Reviewed: Yes Vital Signs On Initial Exam: Initial Vitals Temp Pulse Resp BP Pulse Ox 98.0 F 53 15 172/92 99 08/03/18 10:52 08/03/18 10:52 08/03/18 10:52 08/03/18 10:52 08/03/18 10:52 Vital Signs Reviewed: Yes Diagnostics - Vital Signs Vital Signs Temp Pulse Resp BP Pulse Ox 08/03/18 10:52 98.0 F 53 15 172/92 99 - Laboratory Lab Statement: Any lab studies that have been ordered have been reviewed, and results considered in the medical decision making process. Altered Mental Statu Course/Dx - Course Course Of Treatment: Nurse's notes reviewed. Patient with a long standing depression who is requesting time off of work. He is scheduled to follow-up with his therapist later today. He needs in no for his employer. He has had fleeting suicidal ideations but denies any current plan or persistent ideation. He is discharged in good condition to follow up with his primary care physician. His therapist later today. - Diagnoses Differential Diagnosis/HQI/PQRI: Other - Depression, suicidal ideation, psychosis, bipolar disorder, anxiety Provider Diagnoses: Depression Discharge - Sign-Out/Discharge Documenting (check all that apply): Patient Departure - DISCHARGE - Discharge Plan Condition: Stable Disposition: HOME Patient Education Materials: Depression (DC) Forms: *Work Release Referrals: Jaron Menjivar MD [Primary Care Provider] - Additional Instructions: Follow-up with your doctor/concert today as scheduled. Return if worse or other concerns. - Billing Disposition and Condition Condition: STABLE Disposition: Home - Attestation Statements Document Initiated by Scribe: Yes Documenting Scribe: ALYSON PAZ Provider For Whom Scribe is Documenting (Include Credential): ADARSH CASTREJON MD Scribe Attestation: IALYSON , scribed for ADARSH CASTREJON MD on 08/03/18 at 1441. Scribe Documentation Reviewed: Yes Provider Attestation: The documentation as recorded by the ALYSON myers accurately reflects the service I personally performed and the decisions made by , ADARSH CASTREJON MD Status of Scribe Document: Viewed
[2018-08-03 11:41] VITALS: BP 153/87
== END 2018-08-03 11:41 | disposition home or self-care (01) ==
LOC: ED 10:40
DX: F32.9 Major depressive disorder, single episode, unspecified (principal); I10 Essential (primary) hypertension; R45.851 Suicidal ideations
CPT/HCPCS: 99282

== ENCOUNTER 2022-05-14 14:41 | Inpatient (IN) ==
[2022-05-14 16:32] LABS: ABS Lymphocytes 0.7 10^3/ul (1.0-4.8); ABS Monocytes 0.7 10^3/ul (0-0.8); ABS Neutrophils 15.7 10^3/ul (1.5-7.7); Hematocrit 47 % (42-52); Hemoglobin 15.1 g/dL (14.0-18.0); Lymphocyte % 3.9 %; Mean Corpuscular HGB Conc 32 g/dL (31-36); Mean Corpuscular Hemoglobin 27 pg (27-31); Mean Corpuscular Volume 84 fL (80-94); Mean Platelet Volume 8.5 fL (7.4-10.4); Platelet Count 319 10^3/uL (150-450); Red Blood Count 5.58 10^6 /uL (4.18-5.48); Red Cell Distribution Width 16 % (10-15); White Blood Count 17.1 10^3/uL (3.5-10.8)
[2022-05-14 17:04] LABS: Albumin 4.8 g/dL (3.2-5.2); Albumin/Globulin Ratio 1.5 (1-3); Calcium 10.7 mg/dL (8.6-10.3); Globulin 3.2 g/dL (2-4); Potassium 4.8 mmol/L (3.5-5.0); Total Bilirubin 1.1 mg/dL (0.2-1.0); eGFR CKD-EPI 36.4 (>60)
[2022-05-14 19:44] LABS: Urine Appearance Clear; Urine Bilirubin Negative (Negative); Urine Blood Negative (Negative); Urine Color Amber; Urine Glucose Negative (Negative); Urine Ketones Negative (Negative); Urine Nitrite Positive (Negative); Urine Protein 1+(30 mg/dL) (Negative); Urine Specific Gravity 1.023 (1.002-1.030); Urine Urobilinogen Negative (Negative)
[2022-05-14 19:56] LABS: Urine Bacteria Absent (Absent); Urine Red Blood Cell Absent (Absent); Urine Sperm Present (Absent); Urine Squamous Epithelial Cell Present (Absent); Urine White Blood Cell Absent (Absent)
[2022-05-14] MEDS ORDERED: Lidocaine 2% JELLY 6 ML Topical TOPICAL ONE (20:30)
[2022-05-14] MEDS ORDERED: Lorazepam PYXIS KEY PRN (21:48)
[2022-05-14] MEDS ORDERED: LORazepam 2 mg VIAL 1 ml IM ONE (21:48)
[2022-05-14] MEDS ORDERED: Haloperidol 5 mg/ml SDV IV/IM 5 MG/ML AMP IM ONE (22:04)
[2022-05-14] MEDS ORDERED: Ziprasidone IM 20 mg VIAL 1 ml VIAL IM ONE (22:08)
[2022-05-14] MEDS ORDERED: cefTRIAXone 2 gm/50 mL D5W 2 GM/50 ML BAG IV ONE (22:13)
[2022-05-14 23:36] LABS: C Reactive Protein 19.7 mg/L (<8.01)
[2022-05-14 23:51] LABS: TSH Ultra Thyroid Stim Horm 2.82 mcIU/mL (0.34-5.60)
[2022-05-15] MEDS: NS 0.9% 1000 ml BAG 1,000 ML IV SCH (03:36)
[2022-05-15 05:31] LABS: ABS Basophils 0.1 10^3/ul (0-0.2); ABS Lymphocytes 1.2 10^3/ul (1.0-4.8); ABS Monocytes 1.1 10^3/ul (0-0.8); ABS Neutrophils 12.9 10^3/ul (1.5-7.7); Hematocrit 41 % (42-52); Hemoglobin 13.8 g/dL (14.0-18.0); Lymphocyte % 7.9 %; Mean Corpuscular HGB Conc 34 g/dL (31-36); Mean Corpuscular Hemoglobin 28 pg (27-31); Mean Corpuscular Volume 83 fL (80-94); Mean Platelet Volume 8.7 fL (7.4-10.4); Platelet Count 279 10^3/uL (150-450); Red Blood Count 4.91 10^6 /uL (4.18-5.48); Red Cell Distribution Width 16 % (10-15); White Blood Count 15.3 10^3/uL (3.5-10.8)
[2022-05-15 05:57] LABS: Albumin 4.2 g/dL (3.2-5.2); Albumin/Globulin Ratio 1.5 (1-3); Calcium 9.8 mg/dL (8.6-10.3); Globulin 2.8 g/dL (2-4); Potassium 4.6 mmol/L (3.5-5.0); Total Bilirubin 0.7 mg/dL (0.2-1.0); eGFR CKD-EPI 30.6 (>60)
[2022-05-15] MEDS: Pantoprazole VIAL 40 MG VIAL IV SCH (10:04)
[2022-05-15 10:54] LABS: Urine Benzodiazepine Screen None Detected (None Detect); Urine Cannabinoids Screen None Detected (None Detect); Urine Opiates Screen None Detected (None Detect)
[2022-05-15] MEDS ORDERED: Haloperidol 5 mg/ml SDV IV/IM 5 MG/ML AMP IV SLOW PU PRN (17:59)
[2022-05-15] MEDS ORDERED: Lorazepam PYXIS KEY PRN (17:59)
[2022-05-15] MEDS ORDERED: Al Hydrox/Mg Hydrox/Simet LIQ 30 ML UDC PO ONE (19:13)
[2022-05-15 20:05] LABS: ABS Basophils 0.1 10^3/ul (0-0.2); ABS Eosinophils 0.1 10^3/ul (0-0.6); ABS Lymphocytes 1.4 10^3/ul (1.0-4.8); ABS Monocytes 0.7 10^3/ul (0-0.8); ABS Neutrophils 11.2 10^3/ul (1.5-7.7); Eosinophil % 0.4 %; Hematocrit 38 % (42-52); Hemoglobin 12.7 g/dL (14.0-18.0); Lymphocyte % 10.1 %; Mean Corpuscular HGB Conc 33 g/dL (31-36); Mean Corpuscular Hemoglobin 28 pg (27-31); Mean Corpuscular Volume 83 fL (80-94); Mean Platelet Volume 8.1 fL (7.4-10.4); Platelet Count 263 10^3/uL (150-450); Red Blood Count 4.54 10^6 /uL (4.18-5.48); Red Cell Distribution Width 16 % (10-15); White Blood Count 13.4 10^3/uL (3.5-10.8)
[2022-05-15 20:44] LABS: Calcium 9.1 mg/dL (8.6-10.3); Potassium 4.8 mmol/L (3.5-5.0); eGFR CKD-EPI 62.5 (>60)
[2022-05-15] MEDS: cefTRIAXone 1 gm/50 mL D5W 1 GM/50 ML BAG IV SCH (21:00)
[2022-05-16] MEDS: NS 0.9% 1000 ml BAG 1,000 ML IV SCH (03:01)
[2022-05-16] MEDS: Pantoprazole VIAL 40 MG VIAL IV SCH (08:56)
[2022-05-16] MEDS ORDERED: Lidocaine 2% JELLY 6 ML Topical TOPICAL SCH (14:00)
[2022-05-16] MEDS: cefTRIAXone 1 gm/50 mL D5W 1 GM/50 ML BAG IV SCH (20:17)
[2022-05-16] MEDS: Enoxaparin 40 MG/0.4 ML SYR SUBCUT SCH (20:18)
[2022-05-17 06:50] LABS: ABS Eosinophils 0.2 10^3/ul (0-0.6); ABS Lymphocytes 1.7 10^3/ul (1.0-4.8); ABS Monocytes 0.6 10^3/ul (0-0.8); ABS Neutrophils 3.6 10^3/ul (1.5-7.7); Eosinophil % 2.7 %; Hematocrit 35 % (42-52); Hemoglobin 12.1 g/dL (14.0-18.0); Lymphocyte % 28.3 %; Mean Corpuscular HGB Conc 34 g/dL (31-36); Mean Corpuscular Hemoglobin 29 pg (27-31); Mean Corpuscular Volume 83 fL (80-94); Mean Platelet Volume 8.5 fL (7.4-10.4); Platelet Count 229 10^3/uL (150-450); Red Blood Count 4.24 10^6 /uL (4.18-5.48); Red Cell Distribution Width 15 % (10-15); White Blood Count 6.1 10^3/uL (3.5-10.8)
[2022-05-17 07:04] LABS: Calcium 8.7 mg/dL (8.6-10.3); Potassium 4.7 mmol/L (3.5-5.0); eGFR CKD-EPI 102.3 (>60)
[2022-05-17] MEDS: Pantoprazole VIAL 40 MG VIAL IV SCH (08:20)
[2022-05-17] MEDS: LORazepam 2 mg VIAL 1 ml IV PUSH PRN (15:23)
[2022-05-17] MEDS: Enoxaparin 40 MG/0.4 ML SYR SUBCUT SCH (20:44)
[2022-05-17] MEDS: cefTRIAXone 1 gm/50 mL D5W 1 GM/50 ML BAG IV SCH (20:45)
[2022-05-18] MEDS: Pantoprazole VIAL 40 MG VIAL IV SCH (08:22)
[2022-05-18] MEDS: Calcium Carb (TUMS) 500 mg CHEW TAB PO PRN (19:51)
[2022-05-18] MEDS: Enoxaparin 40 MG/0.4 ML SYR SUBCUT SCH (19:52)
[2022-05-19 06:54] LABS: ABS Basophils 0.1 10^3/ul (0-0.2); ABS Eosinophils 0.2 10^3/ul (0-0.6); ABS Lymphocytes 1.6 10^3/ul (1.0-4.8); ABS Monocytes 0.6 10^3/ul (0-0.8); ABS Neutrophils 3.8 10^3/ul (1.5-7.7); Eosinophil % 2.8 %; Hematocrit 38 % (42-52); Hemoglobin 12.6 g/dL (14.0-18.0); Mean Corpuscular HGB Conc 34 g/dL (31-36); Mean Corpuscular Hemoglobin 28 pg (27-31); Mean Corpuscular Volume 84 fL (80-94); Mean Platelet Volume 7.9 fL (7.4-10.4); Nucleated Red Blood Cells % 0.1; Platelet Count 290 10^3/uL (150-450); Red Blood Count 4.49 10^6 /uL (4.18-5.48); Red Cell Distribution Width 16 % (10-15); White Blood Count 6.1 10^3/uL (3.5-10.8)
[2022-05-19 07:24] LABS: Calcium 9.3 mg/dL (8.6-10.3); Potassium 4.5 mmol/L (3.5-5.0); eGFR CKD-EPI 102.7 (>60)
[2022-05-19] MEDS: Calcium Carb (TUMS) 500 mg CHEW TAB PO PRN ×3 (09:11→16:35)
[2022-05-19] MEDS: Lidocaine 2% JELLY 6 ML Topical TOPICAL PRN ×2 (14:52→17:52)
[2022-05-19] MEDS: LORazepam 2 mg VIAL 1 ml IV PUSH PRN (18:51)
[2022-05-19] MEDS: Enoxaparin 40 MG/0.4 ML SYR SUBCUT SCH (21:07)
[2022-05-20] MEDS: Lidocaine 2% JELLY 6 ML Topical TOPICAL PRN ×2 (08:28→20:48)
[2022-05-20] MEDS: Calcium Carb (TUMS) 500 mg CHEW TAB PO PRN ×2 (13:51→20:19)
[2022-05-20] MEDS: Enoxaparin 40 MG/0.4 ML SYR SUBCUT SCH (20:18)
[2022-05-21 05:43] LABS: Hematocrit 36 % (42-52); Mean Corpuscular HGB Conc 33 g/dL (31-36); Mean Corpuscular Hemoglobin 28 pg (27-31); Mean Corpuscular Volume 84 fL (80-94); Mean Platelet Volume 7.5 fL (7.4-10.4); Platelet Count 305 10^3/uL (150-450); Red Cell Distribution Width 16 % (10-15); White Blood Count 6.4 10^3/uL (3.5-10.8)
[2022-05-21 06:01] LABS: Calcium 8.9 mg/dL (8.6-10.3); Potassium 4.3 mmol/L (3.5-5.0); eGFR CKD-EPI 101.5 (>60)
[2022-05-21 08:17] LABS: ABS Eosinophils 0.2 10^3/ul (0-0.6); ABS Lymphocytes 2.3 10^3/ul (1.0-4.8); ABS Monocytes 0.6 10^3/ul (0-0.8); ABS Neutrophils 3.3 10^3/ul (1.5-7.7); Eosinophil % 3.1 %; Lymphocyte % 35.7 %
[2022-05-21] MEDS: Calcium Carb (TUMS) 500 mg CHEW TAB PO PRN (09:16)
[2022-05-21] MEDS: Lidocaine 2% JELLY 6 ML Topical TOPICAL PRN (19:38)
[2022-05-21] MEDS: LORazepam 2 mg VIAL 1 ml IV PUSH PRN (19:43)
[2022-05-22] MEDS: Enoxaparin 40 MG/0.4 ML SYR SUBCUT SCH ×2 (00:47→20:47)
[2022-05-22] MEDS: Calcium Carb (TUMS) 500 mg CHEW TAB PO PRN ×2 (00:51→08:37)
[2022-05-22] MEDS: Sulfamethox/Trimethoprim DS TAB 800/160 mg PO SCH ×2 (08:32→20:56)
[2022-05-22] MEDS ORDERED: LORazepam 2 mg VIAL 1 ml IV PUSH PRN (16:57)
[2022-05-22] MEDS: Lidocaine 2% JELLY 6 ML Topical TOPICAL PRN (17:30)
[2022-05-23] MEDS: Calcium Carb (TUMS) 500 mg CHEW TAB PO PRN (09:03)
[2022-05-23] MEDS: Aspirin EC 81 mg TAB.EC (enteric coated) PO SCH (09:03)
[2022-05-23] MEDS: Sulfamethox/Trimethoprim DS TAB 800/160 mg PO SCH ×2 (09:03→20:05)
[2022-05-23] MEDS: Lidocaine 2% JELLY 6 ML Topical TOPICAL PRN (10:42)
[2022-05-23] MEDS: Enoxaparin 40 MG/0.4 ML SYR SUBCUT SCH (20:05)
[2022-05-24 06:35] LABS: Calcium 8.9 mg/dL (8.6-10.3); Potassium 4.8 mmol/L (3.5-5.0); eGFR CKD-EPI 100.7 (>60)
[2022-05-24] MEDS: Calcium Carb (TUMS) 500 mg CHEW TAB PO PRN (08:31)
[2022-05-24] MEDS: Sulfamethox/Trimethoprim DS TAB 800/160 mg PO SCH (08:32)
[2022-05-24] MEDS: Aspirin EC 81 mg TAB.EC (enteric coated) PO SCH (08:33)
[2022-05-24 11:05] VITALS: BP 141/70
== END 2022-05-24 12:10 | disposition home or self-care (01) | DRG 501 ==
LOC: ED 14:41 → SUATTDRO 22:59 → EDHOLD 22:59 → MED 05-15 16:59
PROVIDERS: ADMIT Hospitalist; ATTEND Hospitalist

== ENCOUNTER 2024-03-22 08:52 | Inpatient (IN) ==
[2024-03-22 09:20] LABS: ABS Basophils 0.1 10^3/uL (0.0-0.1); ABS Lymphocytes 0.5 10^3/uL (1.0-4.8); ABS Monocytes 0.3 10^3/uL (0.0-1.1); ABS Neutrophils 7.8 10^3/uL (1.5-7.6); ABS Nucleated RBC 0.01 10^3/ul; Eosinophil % 0.4 %; Hemoglobin 13.3 g/dL (13.2-16.3); Lymphocyte % 5.9 %; Mean Corpuscular Hemoglobin 24.7 pg (27-33); Mean Corpuscular Hgb Conc 32.4 g/dL (31-36); Mean Corpuscular Volume 76.1 fL (80-97); Mean Platelet Volume 8.5 fL (7.5-11.2); Nucleated Red Blood Cells % 0.1 %/100WBC (0.0-0.8); Platelet Count 307 10^3/uL (150-450); Red Blood Count 5.38 10^6/uL (4.06-5.63); Red Cell Distribution Width 18.9 % (12-17); White Blood Count 8.6 10^3/uL (3.6-10.2)
[2024-03-22 10:02] LABS: ALT 18 U/L (7-52); AST 15 U/L (13-39); Acetaminophen < 15 mcg/mL; Albumin 4.7 g/dL (3.2-5.2); Albumin/Globulin Ratio 1.5 (1-3); Alcohol, S < 13 mg/dL (<13); Alkaline Phosphatase 79 U/L (35-149); Anion Gap 12 mmol/L (2-16); Blood Urea Nitrogen 27 mg/dL (6-24); CO2 Carbon Dioxide 23 mmol/L (22-32); Calcium 10.3 mg/dL (8.6-10.3); Chloride 101 mmol/L (101-111); Globulin 3.1 g/dL (2-4); Glucose 166 mg/dL (70-100); Potassium 4.7 mmol/L (3.5-5.0); Salicylate < 2.50 mg/dL (<30); Sodium 136 mmol/L (135-145); Total Bilirubin 0.5 mg/dL (0.2-1.0); Total Protein 7.8 g/dL (6.4-8.9); eGFR CKD-EPI 44.7 (>60)
[2024-03-22 10:16] LABS: TSH Ultra Thyroid Stim Horm 0.78 mcIU/mL (0.34-5.60)
[2024-03-22] MEDS ORDERED: Al Hydrox/Mg Hydrox/Simet LIQ 30 ML UDC PO PRN (10:32)
[2024-03-22] MEDS: NS 0.9% 1000 ml BAG 1,000 ML IV ONE (11:25)
[2024-03-22 13:41] LABS: Calcium 8.7 mg/dL (8.6-10.3); Creatinine, Serum 1.24 mg/dL (0.67-1.17); eGFR CKD-EPI 65.3 (>60)
[2024-03-22 13:54] LABS: Urine Appearance Turbid; Urine Bilirubin Negative (Negative); Urine Blood Negative (Negative); Urine Color Yellow; Urine Glucose 1+ (>=70 mg/dL) (Negative); Urine Ketones Negative (Negative); Urine Nitrite Negative (Negative); Urine Protein 1+ (>=30 mg/dL) (Negative); Urine Specific Gravity 1.026 (1.002-1.030); Urine Urobilinogen Negative (Negative); Urine pH 5.5 (5.0-8.0)
[2024-03-22 14:01] LABS: Budding Yeast Present /HPF (Absent); Urine Bacteria Absent /HPF (Absent); Urine Red Blood Cell Trace(0-2/hpf) /HPF (0-Trace); Urine Uric Acid Crystals Present /HPF (Absent); Urine White Blood Cell Trace(0-5/hpf) /HPF (0-Trace)
[2024-03-22 14:22] LABS: Urine Benzodiazepine Screen None Detected (None Detect); Urine Cannabinoids Screen None Detected (None Detect); Urine Opiates Screen None Detected (None Detect)
[2024-03-23 08:40] LABS: HDL Cholesterol 38.4 mg/dL
[2024-03-28 09:16] VITALS: BP 127/76
== END 2024-03-28 14:20 | disposition home or self-care (01) | DRG 751 ==
LOC: ED 08:52 → EDHOLD 10:32 → BSU 14:23
PROVIDERS: ADMIT Psychiatry & Neurology Psychiatry; ATTEND Psychiatry & Neurology Psychiatry